=== PATIENT | female | born 1970 | race Caucasian/White ===

== ENCOUNTER → 2020-03-12 | Outpatient (CLI) | payer BC ==
--- NOTE | 2020-03-12 16:05 | RADIOLOGY REPORT (SQ) ---
EXAM DESCRIPTION: CT BONE LENGTH IMAGES COMPLETED DATE/TIME: 03/12/2020 3:04 pm REASON FOR STUDY: Q72.819 CONGENITAL SHORTENING OF UNSPECIFIED LOWER LIMB I87.2 VENOUS INSUFFICIENC Y (CHRONIC) (PERIPHERAL) R22.42 LOCALIZED SWELLING, MASS AND LUMP, LEFT LOWER LIMB I82.402 ACUTE EM BOLISM AND THOMBOS UNSP DEEP VEINS OF L LOW COMPARISON: None. TECHNIQUE: CT scanogram of the bilateral lower extremities is performed including pelvis to ankles. Measurements of femur, tibia, and entire lower extremities performed by the radiologist and saved to PACS. All CT scanners at this facility use dose modulation, iterative reconstruction, and/or weight based d osing when appropriate to reduce radiation dose to as low as reasonably achievable (ALARA). [facility]: Dose Right [facility]: CareDose [facility]: Dose Right [facility]: Teradose 4D [facility]: [employer] RADIATION DOSE: mGy. LIMITATIONS: None. FINDINGS: RIGHT: FEMUR: 47.8 cm. TIBIA: 37.7 cm. TOTAL RIGHT LOWER EXTREMITY LENGTH: 84.8 cm. LEFT: FEMUR: 47.9 cm. TIBIA: 37.5 cm. TOTAL LEFT LOWER EXTREMITY LENGTH: 84.4 cm. IMPRESSION: LEG LENGTH MEASUREMENTS DETAILED ABOVE. TECHNICAL DOCUMENTATION: JOB ID: [id number] Quality ID # [id number]: Final reports with documentation of one or more dose reduction techniques (e.g., Au tomated exposure control, adjustment of the mA and/or kV according to patient size, use of iterative reconstruction technique) 2010 [email or web address]- All Rights Reserved Reading location - IP/workstation name: [email or web address]
--- NOTE | 2020-03-12 17:01 | RADIOLOGY REPORT (SQ) ---
EXAM DESCRIPTION: VENOUS UNILATERAL LOWER IMAGES COMPLETED DATE/TIME: 03/12/2020 4:42 pm REASON FOR STUDY: LLE I82.401 I87.2 VENOUS INSUFFICIENCY (CHRONIC) (PERIPHERAL) R22.42 LOCALIZED S WELLING, MASS AND LUMP, LEFT LOWER LIMB I82.402 ACUTE EMBOLISM AND THOMBOS UNSP DEEP VEINS OF L LOW COMPARISON: None. TECHNIQUE: Dynamic and static vazquez scale and color images acquired of the left leg venous system. Se lected spectral images acquired with additional compression and augmentation maneuvers. The contralat eral common femoral vein and saphenofemoral junction were also imaged. Images stored on PACS. LIMITATIONS: None. FINDINGS: COMMON FEMORAL: Normal phasicity, compression and augmentation. No visualized echogenic ma terial on vazquez scale. No defects on color images. FEMORAL: Normal compression and augmentation. No visualized echogenic material on vazquez scale. No defe cts on color images. POPLITEAL: Normal compression, augmentation. No visualized echogenic material on vazquez scale. No defec ts on color images. CALF VESSELS: Normal compression, augmentation. No visualized echogenic material on vazquez scale. No de fects on color images. GSV and SSV: Normal compression, augmentation. No visualized echogenic material on vazquez scale. No def ects on color images. ANY DEEP VENOUS INSUFFICIENCY: Not evaluated. ANY EVIDENCE OF POPLITEAL CYST: No. OTHER: No other significant finding. CONTRALATERAL COMMON FEMORAL VEIN: Normal phasicity, compression and augmentation. No visualized echogenic material on vazquez scale. No de fects on color images. IMPRESSION: 1. NO EVIDENCE OF DVT OR SVT IN THE LEFT LEG. COMMENT: 1. The results of this examination were left at the provider's office on 03/12/2020 at 16:40 hours. The office closed at 14:30 hours. TECHNICAL DOCUMENTATION: JOB ID: [id number] 2010 [email or web address]- All Rights Reserved Reading location - IP/workstation name: [email or web address]
== END ==
LOC: SP 14:49
PROVIDERS: ATTEND Podiatrist Foot & Ankle Surgery
DX: I82.402 Acute embolism and thrombosis of unspecified deep veins of left lower extremity (principal); Q72.819 Congenital shortening of unspecified lower limb
CPT/HCPCS: 77073; 93971